=== PATIENT | female | born 1985 | race Hispanic/Latino ===

== ENCOUNTER 2017-05-21 20:58 | Emergency (ER) | payer BC, MEDICAID ==
[2017-05-21 20:58] VITALS: BMI 25.8
[2017-05-21 22:00] VITALS: BP 126/73; PULSE 64; RESP 16; TEMP 97.8; O2SAT 100
[2017-05-22 01:12] LABS: BASO # 0.1 K/uL (0.0-0.2); EOS # 0.1 K/uL (0.0-0.7); EOS % 0.7 % (0.0-4.0); HEMATOCRIT 38.7 % (34.0-47.0); LYMPH # 3.4 K/uL (1.0-4.3); LYMPH % 37.7 % (20.0-40.0); MEAN CORPUSCULAR HEMOGLOBIN 31.4 pg (27.0-31.0); MEAN PLATELET VOLUME 8.1 fl (7.2-11.7); MONO # 0.6 K/uL (0.0-0.8); MONO % 6.6 % (0.0-10.0); NEUT # 4.9 K/uL (1.8-7.0); RED CELL DISTRIBUTION WIDTH 13.3 % (11.5-14.5)
[2017-05-22 01:20] LABS: URINE BACTERIA RARE (<OCC); URINE BILIRUBIN NEGATIVE (NEGATIVE); URINE BLOOD NEGATIVE (NEGATIVE); URINE COLOR YELLOW (YELLOW); URINE GLUCOSE (UA) NEG (Normal); URINE KETONE NEGATIVE (NEGATIVE); URINE LEUKOCYTE ESTERASE NEG Leu/uL (Negative); URINE PROTEIN NEGATIVE (NEGATIVE); URINE UROBILINOGEN 0.2-1.0 mg/dL (0.2-1.0); WBC URINE < 1 /hpf (0-5)
[2017-05-22 01:21] LABS: BLOOD UREA NITROGEN 10 mg/dl (7-17); CALCIUM 8.8 mg/dL (8.4-10.2); CARBON DIOXIDE 26 mmol/L (22-30); CHLORIDE 106 mmol/L (98-107); GFR AFRICAN-AMERICAN > 60; GLUCOSE,RANDOM 85 mg/dL (65-105); POTASSIUM 3.6 MMOL/L (3.6-5.0); SODIUM 139 mmol/l (132-148)
--- NOTE | 2017-05-22 01:29 | ED PDOC ---
HPI: Back Time Seen by Provider: 05/22/17 00:46 Chief Complaint (Nursing): Back Pain Chief Complaint (Provider): Back Pain History Per: Patient History/Exam Limitations: no limitations Onset/Duration Of Symptoms: Days (x7 days) Current Symptoms Are (Timing): Still Present Quality Of Discomfort: Other (discomfort) Associated Symptoms: None Additional Complaint(s): 32 year old female presents to ED with complaints of lower back pain x1 week and has no past medical history. (+) pelvic discomfort, (-) dysuria or vaginal discharge/bleeding. Patient notes symptoms prompted ED visit. Reports having a terminated (9 weeks along) in March 2017. Attempted to make an OB/ [facility] [employer] appointment but was unable to get one in the near future. PCP: JONA - Risk Factors AAA Risk Factors: Neg: Older Than 49 Years Of Age Past Medical History Reviewed: Historical Data, Nursing Documentation, Vital Signs Vital Signs: Last Vital Signs Temp 97.8 F 05/21/17 21:57 Pulse 64 05/21/17 21:57 Resp 16 05/21/17 21:57 BP 126/73 05/21/17 21:57 Pulse Ox 100 05/21/17 21:57 - Medical History PMH: No Chronic Diseases - Surgical History Other surgeries: Termination of in March 2017 - Family History Family History: States: No Known Family Hx - Social History Current smoker - smoking cessation education provided: No Ex-Smoker (has not smoked in the last 12 months): No Alcohol: None Drugs: Denies - Home Medications Home Medications: Ambulatory Orders Medication Instructions Recorded Cephalexin [Keflex] 500 mg PO QID #20 cap 02/21/14 Naproxen [Naprosyn] 500 mg PO Q12 #14 tab 05/22/17 - Allergies Allergies/Adverse Reactions: Allergies Allergy/AdvReac Type Severity Reaction Status Date / Time No Known Allergies Allergy Verified 05/21/17 21:57 Review of Systems ROS Statement: Except As Marked, All Systems Reviewed And Found Negative Genitourinary Female: Positive for: Pelvic Pain (discomfort). Negative for: Dysuria, Vaginal Discharge, Vaginal Bleeding Musculoskeletal: Positive for: Back Pain (lower back pain) Physical Exam - Reviewed Nursing Documentation Reviewed: Yes Vital Signs Reviewed: Yes - Physical Exam Appears: Positive for: Non-toxic, No Acute Distress Skin: Positive for: Normal Color, Warm, Dry Eye Exam: Positive for: Normal appearance Cardiovascular/Chest: Positive for: Regular Rate, Rhythm. Negative for: Bradycardia Respiratory: Positive for: Normal Breath Sounds. Negative for: Respiratory Distress Gastrointestinal/Abdominal: Positive for: Soft, Tenderness (mild suprapubic tenderness) Back: Positive for: Normal Inspection Extremity: Positive for: Normal ROM. Negative for: Deformity Neurologic/Psych: Positive for: Alert, Oriented. Negative for: Motor/Sensory Deficits - Laboratory Results Result Diagrams: 05/22/17 01:05 05/22/17 01:05 - ECG O2 Sat by Pulse Oximetry: 100 (RA) Pulse Ox Interpretation: Normal Medical Decision Making Medical Decision Makin Initial impression: suprapubic pain in setting of recent termination of Initial plan: * Labs * UPreg * UA * US PELVIS 0246 US FINDINGS Uterus/cervix: No myometrial mass. Endometrium: 0.7 cm in thickness. Right ovary: No mass. Small follicles. Normal flow. Left ovary: No mass. Small follicles. Normal flow. Free fluid: No significant free fluid. IMPRESSION: 1. No acute findings. 0252 Labs reviewed: no clinically significant abnormalities. Provider encouraged patient to follow up with TECHNICAL SUPERVISOR. Patient stable for discharge home with Rx for Naproxen. Dx: back pain Scribe Attestation: Documented by Dia Noriega acting as a scribe for Gumaro Ross MD. Scribe Attestation: All medical record entries made by the Scribe were at my direction and personally dictated by me. I have reviewed the chart and agree that the record accurately reflects my personal performance of the history, physical exam, medical decision making, and the department course for this patient. I have also personally directed, reviewed, and agree with the discharge instructions and disposition. Disposition - Clinical Impression Clinical Impression: Back pain Counseled Patient/Family Regarding: Studies Performed, Diagnosis, Need For Followup, Rx Given - Disposition Disposition: Routine/Home Disposition Time: 02:52 Condition: STABLE Prescriptions: Naproxen [Naprosyn] 500 mg PO Q12 #14 tab Instructions: Back Pain (ED) Forms: [employer] [facility] ([place]), [facility] ED School/Work Excuse
--- NOTE | 2017-05-22 09:29 | US ---
HISTORY: pelvic pain COMPARISON: None available. TECHNIQUE: Grayscale, color Doppler and spectral evaluation of the pelvis performed transabdominally. FINDINGS: UTERUS: Measures 8.5 x 3.7 x 5.4 cm. Anteverted. Normal in size and appearance. No fibroid or other mass lesion seen. ENDOMETRIUM: Measures 7 mm in diameter. Unremarkable. CERVIX: No cervical abnormality identified. RIGHT OVARY: Measures 3.1 x 2.8 x 2.5 cm. No solid mass. Normal flow. LEFT OVARY: Measures 2.8 x 2.4 x 2.9 cm. No solid mass. Normal flow. FREE FLUID: No significant free fluid noted. OTHER FINDINGS: None. IMPRESSION: Unremarkable pelvic ultrasound.
== END 2017-05-22 03:00 | disposition home or self-care (01) ==
LOC: H.ER 20:58
DX: M54.9 Dorsalgia, unspecified (principal); R10.2 Pelvic and perineal pain